=== PATIENT | female | born 1945 | race Caucasian/White ===

== ENCOUNTER 2017-11-17 05:41 | Day surgery (SDC) | payer MEDICARE, MEDICAID, OTHER ==
[2017-11-16 13:15] VITALS: BMI 30.2
[2017-11-17] MEDS ORDERED: Lidocaine Viscous Sol 2% 15 ml UD Cup ONE (07:18)
--- NOTE | 2017-11-17 08:16 | OP ---
DATE OF PROCEDURE: 11/17/2017 SURGEON: Kamilla Sanchez M.D. OPERATIVE PROCEDURE: 1. Esophagogastroduodenoscopy with biopsy. 2. Dilation with Padilla dilators sizes 48, 50, and 52 Gabonese dilator. PREOPERATIVE DIAGNOSES: Dysphagia, recent foreign body impaction. The patient has history of esopha geal stricture, status post dilatation x3 in the past. POSTOPERATIVE DIAGNOSES: 1. Normal esophageal mucosa throughout. 1. A ring like stricture of GE junction. 2. Small hiatus hernia. 3. Gastric ulcer in the gastric antrum. PROCEDURE IN DETAIL: The patient was placed on her left lateral position and was given sedation by A nesthesia Department. The patient also had a ____ gargle and swallow before the procedure. A Pentax video gastroscope under direct vision was passed in the oral pharynx, to the GE junction, stomach. The vocal cords appeared healthy. Careful exam of the esophagus shows no pathology. The mucosa ap peared normal. At the GE junction the patient was found to have an esophageal ring. She has small h iatus hernia. Retroflexion failed to show any lesions in the fundus and cardia. The gastric body, n o pathology. The gastric antrum showed ulceration. The duodenal bulb and descending duodenum, no pa thology seen. Biopsy of the gastric antrum and gastric body. The scope removed. Padilla dilator si zes 48, 50, and 52 Gabonese passed with mild resistance. The patient rescoped again. There was friabi lity and mild oozing of blood at the GE junction indicative of successful dilation. The stomach was decompressed and the scope removed. DISCHARGE PLANNING: This is a 72-year-old female who came in for EGD because of recent for eign body impaction and also past history of esophageal stricture. She underwent EGD and biopsy. Sh e had an esophageal ring at the GE junction, which was dilated. DISCHARGE RECOMMENDATIONS: 1. She is on omeprazole 20 once a day. Should be increased to 40 once a day. 2. The patient was advised to call me if she develops any chest discomfort, fever, hematemesis, pat na. 3. Come back to clinic in 2 weeks.
--- NOTE | 2017-11-17 08:40 | HP ---
SHORT STAY HISTORY AND PHYSICAL DATE OF ADMISSION: 11/17/2017 HISTORY OF PRESENT ILLNESS: This is a 72-year-old, white female with history of recent foot infectio ns . The patient receives two times in the past. The last one was done 2-1/2 years ago. The patient has been having difficulty swallowing over the last probably couple of weeks. Over the last weekend, she got a food bolus stuck to esophagus and started retching and coughing. Finally, sh cheryl was able to vomit the food material. The patient is actually feeling better, and she is very caref ul what she is eating. The patient has a history of acid reflux. Her symptoms suggestive of esophag eal stricture. The patient comes to the ED because of . ALLERGIES: PENICILLIN. MEDICAL ILLNESSES: 1. Diabetes mellitus. 2. Hypertension. 3. Hyperlipidemia. 4. Depression. 5. Coronary artery bypass graft. PHYSICAL EXAMINATION: GENERAL: The patient is comfortable. VITAL SIGNS: Pulse is 70, blood pressure 130/80. HEENT: Conjunctivae clear. CARDIOVASCULAR: First and second heart sounds normal. LUNGS: Clear to auscultation. ABDOMEN: Soft to palpate. No organomegaly. No tenderness. No masses. EXTREMITIES: Reveal no edema. ADMITTING DIAGNOSES: Dysphagia, history of esophageal stricture. PLAN: Esophagogastroduodenoscopy and dilation.
[2017-11-17] MEDS ORDERED: PROPOFOL 200 MG/20 ML VIAL ONE (10:44)
[2017-11-17] MEDS ORDERED: Lidocaine 1% PF 5 ML VIAL ONE (10:44)
== END 2017-11-17 09:10 | disposition home or self-care (01) ==
LOC: SDC 05:41
PROVIDERS: ATTEND Internal Medicine Gastroenterology
PROC: 0DB68ZX Excision of Stomach, Via Natural or Artificial Opening Endoscopic, Diagnostic (ICD-10-PCS; principal; 2017-11-17)
PROC: 0D758ZZ Dilation of Esophagus, Via Natural or Artificial Opening Endoscopic (ICD-10-PCS; 2017-11-17)
DX: K31.89 Other diseases of stomach and duodenum (principal); K22.2 Esophageal obstruction; K44.9 Diaphragmatic hernia without obstruction or gangrene; E11.9 Type 2 diabetes mellitus without complications; I10 Essential (primary) hypertension; E78.5 Hyperlipidemia, unspecified; F32.9 Major depressive disorder, single episode, unspecified; Z88.0 Allergy status to penicillin; Z95.1 Presence of aortocoronary bypass graft; Z98.890 Other specified postprocedural states
CPT/HCPCS: 88305; 88312; J2001; J2704

== ENCOUNTER 2017-12-27 14:40 | Outpatient (CLI) | payer MEDICARE, MEDICAID, OTHER | END 2017-12-27 14:41 | disposition home or self-care (01) | LOC: BICMAMMO 14:40 | PROVIDERS: ATTEND Internal Medicine | DX: Z12.31 Encounter for screening mammogram for malignant neoplasm of breast (principal) | CPT/HCPCS: 77063; 77067 ==

== ENCOUNTER 2019-03-26 13:43 | Outpatient (CLI) | payer MEDICARE, MEDICAID | END 2019-03-26 13:44 | disposition home or self-care (01) | LOC: DTY/OP 13:43 | PROVIDERS: ATTEND Internal Medicine | DX: E11.65 Type 2 diabetes mellitus with hyperglycemia (principal) | CPT/HCPCS: 97802 ==

== ENCOUNTER 2020-11-23 17:29 | Observation (INO) | payer MEDICARE, MEDICAID ==
[2020-11-23 19:39] LABS: #Eosinphils 0.1 thou/uL (0.0-0.7); #Lymphocytes 1.1 thou/uL (1.20-3.40); #Monocytes 0.5 thou/uL (0.11-0.59); #Neutrophils 2.8 thou/uL (1.40-6.50); %Lymphocytes 24.4 % (21.0-51.0); %Monocytes 10.4 % (0.0-10.0); %Neutrophils 61.2 % (42.0-75.0); Hemoglobin 12.9 g/dL (12.0-16.0); Mean Corpuscular Hemoglobin 29.1 pg (27.0-31.0); Mean Corpuscular Volume 85.5 fL (78.0-98.0); Mean Platelet Volume 10.5 fL (7.4-10.4); Platelet Count 144 thou/uL (130-400); RBC Distribution Width 13.1 % (11.5-14.5); Red Blood Cell (RBC) Count 4.44 mill/uL (4.20-5.40); White Blood Cell (WBC) Count 4.5 thou/uL (4.8-10.8)
[2020-11-23 19:49] LABS: PTT 23.2 sec (22.9-36.1); Prothrombin Time 12.9 sec (12.0-14.7)
[2020-11-23 19:59] LABS: Acetaminophen Less than 6.0 mcg/mL (10.0-30.0); Alcohol Less than 10 mg/dL (Less than 10); Salicylate Less than 8.0 mg/dL (15.0-30.0)
[2020-11-23 19:59] LABS: ALT (SGPT) 32 U/L (8-55); AST (SGOT) 22 U/L (5-34); Albumin 4.1 g/dL (3.4-4.8); Alkaline Phosphatase 94 U/L (40-110); Anion Gap 16 mmol/L (10-20); BUN (Urea Nitrogen) 14 mg/dL (9.8-20.1); Bilirubin, Total 0.5 mg/dL (0.2-1.2); CK (CPK) 66 U/L (29-168); Calc. Creatinine Clearance 0 mL/min (70-130); Calcium 9.5 mg/dL (7.8-10.44); Carbon Dioxide 21 mmol/L (23-31); Chloride 101 mmol/L (98-107); Globulin 2.6 g/dL (2.4-3.5); Glucose 464 mg/dL (83-110); Potassium 4.3 mmol/L (3.5-5.1); Protein, Total 6.7 g/dL (5.8-8.1); Sodium 134 mmol/L (136-145)
[2020-11-23] MEDS ORDERED: Aspirin Chewable 81 MG TAB ONE (22:00)
[2020-11-23] MEDS ORDERED: Dextrose 50% Abboject 50 ML SYRINGE IVP PRN (22:45)
[2020-11-23] MEDS ORDERED: Ondansetron ODT 4 MG TAB SL PRN (22:45)
[2020-11-23] MEDS ORDERED: Dextrose 5% in Water 1,000 ML IV PRN (22:45)
[2020-11-23] MEDS ORDERED: Insulin Regular 300 UNITS/3 ML VIAL SC PRN (22:45)
[2020-11-23] MEDS ORDERED: Ondansetron PF 4 MG/2 ML Vial IVP PRN (22:45)
[2020-11-23] MEDS ORDERED: Acetaminophen 325 MG TAB PO PRN (22:45)
[2020-11-23 23:09] LABS: Troponin I Less than 0.010 ng/mL (< 0.028)
[2020-11-23 23:44] VITALS: BMI 29.2
[2020-11-24] MEDS ORDERED: hydrALAZINE 20 MG/ML VIAL SLOW IVP PRN (00:50)
[2020-11-24] MEDS ORDERED: HumaLOG 300 UNITS/3 ML VIAL SC PRN (00:51)
[2020-11-24] MEDS ORDERED: Dextrose 5% in Water 1,000 ML IV PRN (00:51)
[2020-11-24] MEDS ORDERED: Dextrose 50% Abboject 50 ML SYRINGE SLOW IVP PRN (00:51)
[2020-11-24] MEDS ORDERED: Acetaminophen 325 MG TAB PO PRN (01:48)
[2020-11-24] MEDS ORDERED: Ondansetron PF 4 MG/2 ML Vial IVP PRN (01:48)
[2020-11-24 02:17] LABS: Troponin I Less than 0.010 ng/mL (< 0.028)
[2020-11-24 02:24] LABS: Cardiac Risk 3.9 (Less than 4.5)
[2020-11-24 02:26] LABS: SARS-CoV-2 NAA Rapid Test Not Detected (NotDetected)
[2020-11-24 05:41] LABS: #Eosinphils 0.1 thou/uL (0.0-0.7); #Lymphocytes 1.4 thou/uL (1.20-3.40); #Monocytes 0.4 thou/uL (0.11-0.59); #Neutrophils 2.3 thou/uL (1.40-6.50); %Basophils 0.3 % (0.0-1.0); %Eosinophils 3.6 % (0.0-10.0); %Lymphocytes 32.4 % (21.0-51.0); %Monocytes 9.9 % (0.0-10.0); %Neutrophils 53.8 % (42.0-75.0); Hemoglobin 12.3 g/dL (12.0-16.0); Mean Corpuscular HGB CONC 33.1 g/dL (32.0-36.0); Mean Corpuscular Hemoglobin 28.6 pg (27.0-31.0); Mean Corpuscular Volume 86.3 fL (78.0-98.0); Mean Platelet Volume 10.6 fL (7.4-10.4); Platelet Count 135 thou/uL (130-400); RBC Distribution Width 13.3 % (11.5-14.5); Red Blood Cell (RBC) Count 4.31 mill/uL (4.20-5.40); White Blood Cell (WBC) Count 4.2 thou/uL (4.8-10.8)
[2020-11-24] MEDS: HumaLOG 300 UNITS/3 ML VIAL SC PRN ×2 (05:43→12:00)
[2020-11-24] MEDS ORDERED: Levothyroxine Sodium 100 MCG TAB PO SCH (06:00)
[2020-11-24 06:10] LABS: Anion Gap 13 mmol/L (10-20); BUN (Urea Nitrogen) 15 mg/dL (9.8-20.1); Calc. Creatinine Clearance 69 mL/min (70-130); Calcium 9.1 mg/dL (7.8-10.44); Carbon Dioxide 24 mmol/L (23-31); Chloride 103 mmol/L (98-107); Glucose 353 mg/dL (83-110); Potassium 4.1 mmol/L (3.5-5.1); Sodium 136 mmol/L (136-145)
[2020-11-24 06:42] LABS: Hemoglobin A1c 12.3 % (4.0-6.0)
[2020-11-24] MEDS: metFORMIN 500 MG TAB PO SCH ×2 (08:57→16:14)
[2020-11-24] MEDS ORDERED: Escitalopram Oxalate 20 mg Tablet PO SCH (09:00)
[2020-11-24] MEDS ORDERED: Non-Formulary Item 1 EACH (Pregabalin [Lyrica] 150 MG Cap) PO SCH (09:00)
[2020-11-24] MEDS ORDERED: Non-Formulary Item 1 EACH (Metformin Hcl [Metformin Hcl] 1,000 MG Tablet) PO SCH (09:00)
[2020-11-24] MEDS ORDERED: Atorvastatin Calcium 40 MG TAB PO SCH (09:00)
[2020-11-24] MEDS ORDERED: Pregabalin 75 MG CAP PO SCH (09:00)
[2020-11-24] MEDS ORDERED: Glimepiride 4 MG TAB PO SCH (09:00)
[2020-11-24] MEDS ORDERED: Gabapentin 100 MG CAP PO SCH (09:00)
[2020-11-24] MEDS ORDERED: Lisinopril 20 MG TAB PO SCH (09:00)
[2020-11-24] MEDS ORDERED: Aspirin 81 mg Enteric Coated Tablet PO SCH (09:00)
[2020-11-24] MEDS ORDERED: Metoprolol Tartrate 25 MG TAB PO SCH (09:00)
[2020-11-24 13:51] LABS: Bacteria/HPF None Seen HPF (None Seen); Bilirubin Negative (Negative); Blood, Urine Negative (Negative); Clarity Clear (Clear); Glucose, Urine (Dipstick) Greater than 1000 mg/dL (Negative); Ketone, Urine Negative (Negative); Leukocyte Negative Leu/uL (Negative); Nitrite Negative (Negative); Protein, Urine (Dipstick) Negative (Neg-Trace); RBC/HPF 0-3 HPF (0-3); Specific Gravity, Urine 1.032 (1.002-1.036); Squamous Epithelial None Seen HPF (0-3); Urobilinogen Normal mg/dL (Less than 2); WBC/HPF 0-3 HPF (0-3); pH, Urine 6.5 (5.0-9.0)
[2020-11-24 13:56] LABS: Urine Culture Reflex No No
[2020-11-24 15:28] VITALS: BP 127/74; TEMP 98.3
[2020-11-24] MEDS ORDERED: QUETIAPINE FUMARATE 50 MG PO SCH (21:00)
== END 2020-11-24 19:35 | disposition home health service (06) ==
LOC: ERS 17:29 → 2SE 21:54
PROVIDERS: ADMIT Internal Medicine; ATTEND Internal Medicine
DX: M50.10 Cervical disc disorder with radiculopathy, unspecified cervical region (principal); R53.1 Weakness; R27.0 Ataxia, unspecified; M54.5 Low back pain; I25.10 Atherosclerotic heart disease of native coronary artery without angina pectoris; I10 Essential (primary) hypertension; E78.5 Hyperlipidemia, unspecified; K52.9 Noninfective gastroenteritis and colitis, unspecified; E03.9 Hypothyroidism, unspecified; E11.65 Type 2 diabetes mellitus with hyperglycemia; R32 Unspecified urinary incontinence; M48.02 Spinal stenosis, cervical region; I07.1 Rheumatic tricuspid insufficiency; Z79.84 Long term (current) use of oral hypoglycemic drugs; Z79.899 Other long term (current) drug therapy; Z88.0 Allergy status to penicillin; Z95.1 Presence of aortocoronary bypass graft; Z20.822 Contact with and (suspected) exposure to COVID-19
CPT/HCPCS: 70450; 70551; 71045; 80048; 80053; 80061; 80307; 81001; 82550; 82962; 83036; 84484 ×3; 85025 ×2; 85610; 85730; 93005; 93306; 93880; 97116; 97139; 99285; G0378 ×3; U0002; U0005; 36415; 36416; J1815

== ENCOUNTER 2021-08-31 12:55 | Outpatient (CLI) | payer MEDICARE, OTHER | END 2021-08-31 12:56 | disposition home or self-care (01) | LOC: BICRAD 12:55 | PROVIDERS: ATTEND Physician Assistant | DX: Z47.89 Encounter for other orthopedic aftercare (principal); M47.812 Spondylosis without myelopathy or radiculopathy, cervical region; Z98.1 Arthrodesis status | CPT/HCPCS: 72040 ==

== ENCOUNTER 2022-09-21 11:38 | Outpatient (CLI) | payer OTHER, MEDICAID | END 2022-09-21 11:39 | disposition home or self-care (01) | LOC: SCSCT 11:38 | PROVIDERS: ATTEND Physician Assistant | DX: Z47.1 Aftercare following joint replacement surgery (principal); R29.890 Loss of height; M50.321 Other cervical disc degeneration at C4-C5 level; M48.02 Spinal stenosis, cervical region; M47.812 Spondylosis without myelopathy or radiculopathy, cervical region; Z98.890 Other specified postprocedural states; Z98.1 Arthrodesis status | CPT/HCPCS: 72125 ==

== ENCOUNTER 2023-02-09 16:31 | Inpatient (IN) | payer OTHER, MEDICAID ==
[2023-02-09 17:32] VITALS: BMI 32.3
[2023-02-09] MEDS ORDERED: Dextrose 5% in Water 1,000 ML IV PRN (20:35)
[2023-02-09] MEDS ORDERED: Glucagon 1 MG/ML KIT IM PRN (20:35)
[2023-02-09] MEDS ORDERED: Dextrose 50% Abboject 50 ML SYRINGE SLOW IVP PRN (20:35)
[2023-02-09] MEDS ORDERED: Acetaminophen 325 MG TAB PO PRN (20:37)
[2023-02-09] MEDS ORDERED: HumaLOG 300 UNITS/3 ML VIAL SC PRN (20:40)
[2023-02-09] MEDS ORDERED: hydrALAZINE 20 MG/ML VIAL SLOW IVP PRN (20:40)
[2023-02-09] MEDS ORDERED: metFORMIN 500 MG TAB PO SCH (21:00)
[2023-02-09] MEDS ORDERED: Metoprolol Tartrate 25 MG TAB PO SCH (21:00)
[2023-02-09] MEDS: Glimepiride 4 MG TAB PO SCH (22:57)
[2023-02-09] MEDS: QUEtiapine 25 MG TAB PO SCH (22:57)
[2023-02-10] MEDS: Magnesium 2 GM/50 ML(in water) 2 GM in Premix Bag 1 BAG IVPB SCH (00:50)
[2023-02-10 04:29] LABS: #Monocytes 0.3 thou/uL (0.11-0.59); #Neutrophils 2.1 thou/uL (1.40-6.50); %Basophils 0.7 % (0.0-1.0); %Lymphocytes 42.7 % (21.0-51.0); %Neutrophils 49.4 % (42.0-75.0); Hematocrit 35.1 % (36.0-47.0); Hemoglobin 10.9 g/dL (12.0-16.0); Mean Corpuscular HGB CONC 31.1 g/dL (32.0-36.0); Mean Corpuscular Hemoglobin 26.9 pg (27.0-31.0); Mean Corpuscular Volume 86.7 fl (78.0-98.0); Mean Platelet Volume 12.8 fL (7.4-10.4); Platelet Count 149 10x3/uL (130-400); RBC Distribution Width 16.1 % (11.5-14.5); Red Blood Cell (RBC) Count 4.05 mill/uL (4.20-5.40); White Blood Cell (WBC) Count 4.2 10x3/uL (4.8-10.8)
[2023-02-10 04:56] LABS: ALT (SGPT) 25 U/L (8-55); AST (SGOT) 40 U/L (5-34); Albumin 4.1 g/dL (3.4-4.8); Alkaline Phosphatase 92 U/L (40-110); Anion Gap 13 mmol/L (10-20); BUN (Urea Nitrogen) 13 mg/dL (9.8-20.1); Bilirubin, Total 0.2 mg/dL (0.2-1.2); Calc. Creatinine Clearance 46 mL/min (70-130); Calcium 8.7 mg/dL (7.8-10.44); Carbon Dioxide 25 mmol/L (23-31); Cardiac Risk 4.7 (Less than 4.5); Chloride 105 mmol/L (98-107); Cholesterol 141 mg/dl (< 200 Desired); Estimated GFR 39; Globulin 2.2 g/dL (2.4-3.5); Glucose 180 mg/dL (83-110); HDL Cholesterol 30 mg/dL (>60 Neg Risk); LDL Cholesterol, Calculated 73 mg/dL; Potassium 4.1 mmol/L (3.5-5.1); Protein, Total 6.3 g/dL (5.8-8.1); Sodium 139 mmol/L (136-145); Triglycerides 188 mg/dL (Less than 150)
[2023-02-10] MEDS: Levothyroxine Sodium 100 MCG TAB PO SCH (05:51)
[2023-02-10] MEDS: Alogliptin 6.25 MG TAB PO SCH (08:57)
[2023-02-10] MEDS: Glimepiride 4 MG TAB PO SCH ×2 (08:57→21:11)
[2023-02-10] MEDS: Atorvastatin Calcium 40 MG TAB PO SCH (08:57)
[2023-02-10] MEDS: Escitalopram Oxalate 20 mg Tablet PO SCH (08:57)
[2023-02-10] MEDS: Pregabalin 75 MG CAP PO SCH (08:58)
[2023-02-10] MEDS: Insulin Glargine 30 UNITS/0.3 ML VIAL SC SCH ×2 (08:59→21:12)
[2023-02-10] MEDS ORDERED: Lisinopril 20 MG TAB PO SCH ×2 (09:00→11:15)
[2023-02-10] MEDS ORDERED: Aspirin 81 mg Enteric Coated Tablet PO SCH (11:00)
[2023-02-10] MEDS: HumaLOG 300 UNITS/3 ML VIAL SC PRN ×2 (11:14→18:32)
[2023-02-10 12:29] LABS: Magnesium 1.6 mg/dL (1.6-2.6)
[2023-02-10] MEDS: QUEtiapine 25 MG TAB PO SCH (21:11)
[2023-02-11] MEDS: Magnesium 2 GM/50 ML(in water) 2 GM in Premix Bag 1 BAG IVPB SCH (00:01)
[2023-02-11 04:39] LABS: #Eosinphils 0.1 thou/uL (0.0-0.7); #Monocytes 0.3 thou/uL (0.11-0.59); #Neutrophils 2.3 thou/uL (1.40-6.50); %Basophils 0.7 % (0.0-1.0); %Eosinophils 1.6 % (0.0-10.0); %Lymphocytes 39.7 % (21.0-51.0); %Monocytes 6.9 % (0.0-10.0); %Neutrophils 50.9 % (42.0-75.0); Hematocrit 40.7 % (36.0-47.0); Hemoglobin 12.5 g/dL (12.0-16.0); Mean Corpuscular HGB CONC 30.7 g/dL (32.0-36.0); Mean Corpuscular Hemoglobin 26.7 pg (27.0-31.0); Mean Corpuscular Volume 86.8 fl (78.0-98.0); Mean Platelet Volume 12.9 fL (7.4-10.4); Platelet Count 113 10x3/uL (130-400); RBC Distribution Width 16.3 % (11.5-14.5); Red Blood Cell (RBC) Count 4.69 mill/uL (4.20-5.40); White Blood Cell (WBC) Count 4.5 10x3/uL (4.8-10.8)
[2023-02-11 05:04] LABS: ALT (SGPT) 27 U/L (8-55); AST (SGOT) 39 U/L (5-34); Albumin 4.2 g/dL (3.4-4.8); Alkaline Phosphatase 97 U/L (40-110); Anion Gap 13 mmol/L (10-20); BUN (Urea Nitrogen) 14 mg/dL (9.8-20.1); Bilirubin, Total 0.5 mg/dL (0.2-1.2); Calc. Creatinine Clearance 53 mL/min (70-130); Calcium 9.2 mg/dL (7.8-10.44); Carbon Dioxide 22 mmol/L (23-31); Chloride 107 mmol/L (98-107); Estimated GFR 46; Globulin 2.6 g/dL (2.4-3.5); Glucose 219 mg/dL (83-110); Potassium 4.1 mmol/L (3.5-5.1); Protein, Total 6.8 g/dL (5.8-8.1); Sodium 138 mmol/L (136-145)
[2023-02-11] MEDS: Levothyroxine Sodium 100 MCG TAB PO SCH (06:11)
[2023-02-11 06:12] LABS: Magnesium 1.5 mg/dL (1.6-2.6)
[2023-02-11] MEDS: HumaLOG 300 UNITS/3 ML VIAL SC PRN ×2 (06:12→12:40)
[2023-02-11] MEDS: Alogliptin 6.25 MG TAB PO SCH (08:49)
[2023-02-11] MEDS: Atorvastatin Calcium 40 MG TAB PO SCH (08:50)
[2023-02-11] MEDS: Glimepiride 4 MG TAB PO SCH (08:50)
[2023-02-11] MEDS: Pregabalin 75 MG CAP PO SCH (08:51)
[2023-02-11] MEDS: Escitalopram Oxalate 20 mg Tablet PO SCH (08:51)
[2023-02-11] MEDS: Insulin Glargine 30 UNITS/0.3 ML VIAL SC SCH (08:51)
[2023-02-11] MEDS ORDERED: Aspirin 81 mg Enteric Coated Tablet PO SCH (09:00)
[2023-02-11] MEDS ORDERED: Lisinopril 20 MG TAB PO SCH ×2 (09:00→09:26)
[2023-02-11] MEDS ORDERED: Magnesium Oxide 400 MG TAB PO SCH (11:40)
[2023-02-11 11:59] VITALS: BP 139/81; TEMP 98.3
[2023-02-12] MEDS ORDERED: Lisinopril 20 MG TAB PO SCH (09:00)
[2023-02-12] MEDS ORDERED: Magnesium Oxide 400 MG TAB PO SCH ×2 (09:00)
== END 2023-02-11 14:10 | disposition home or self-care (01) | DRG 74 ==
LOC: 2SE 16:31 → INTOOBSV 16:31 → OBSVTOIN 02-10 17:47
PROVIDERS: ADMIT Family Medicine; ATTEND Family Medicine
DX: M54.12 Radiculopathy, cervical region (principal); N17.9 Acute kidney failure, unspecified; G95.20 Unspecified cord compression; E03.9 Hypothyroidism, unspecified; I10 Essential (primary) hypertension; E78.5 Hyperlipidemia, unspecified; E66.9 Obesity, unspecified; E11.42 Type 2 diabetes mellitus with diabetic polyneuropathy; F32.A Depression, unspecified; K21.9 Gastro-esophageal reflux disease without esophagitis; G89.29 Other chronic pain; R00.1 Bradycardia, unspecified; Z98.890 Other specified postprocedural states; Z88.0 Allergy status to penicillin; Z88.2 Allergy status to sulfonamides; Z79.890 Hormone replacement therapy; Z79.899 Other long term (current) drug therapy; Z79.82 Long term (current) use of aspirin; Z90.710 Acquired absence of both cervix and uterus; Z68.32 Body mass index [BMI] 32.0-32.9, adult; Z90.49 Acquired absence of other specified parts of digestive tract; Z95.1 Presence of aortocoronary bypass graft; Z90.89 Acquired absence of other organs; Z80.1 Family history of malignant neoplasm of trachea, bronchus and lung
CPT/HCPCS: 36415; 36416; 70551; 80053; 80061; 83735; 85025; 96374; G0378; J1815; J3475

== ENCOUNTER 2025-02-18 16:20 | Inpatient (IN) | payer MEDICARE, MEDICAID ==
[2025-02-18 17:58] LABS: Actual Bicarbonate (HCO3v) 22.1 mEq/L (22-28); Base Excess -3.2 mEq/L (-2.0 to +3.0); Calcium, Ionized (venous) 1.12 mmol/L (1.16-1.32); Chloride (VBG) 101 mmol/L (98-106); Hematocrit-VBG 37 % (36.0-47.0); Hemoglobin (Hb) 12.5 g/dL (11.7-16.1); Potassium (VBG) 4.62 mmol/L (3.70-5.30); Sodium 137 mmol/L (133-146)
[2025-02-18 18:06] LABS: #Basophils 0.05 10x3/uL (0.0-0.2); #Eosinophils 0.12 10x3/uL (0.0-0.7); #Monocytes 0.53 10x3/uL (0.11-0.59); #Neutrophils 4.64 10x3/uL (1.40-6.50); %Basophils 0.6 % (0.0-1.0); %Eosinophils 1.5 % (0.0-10.0); %Lymphocytes 34.4 % (21.0-51.0); %Monocytes 6.5 % (0.0-10.0); %Neutrophils 56.6 % (42.0-75.0); Hematocrit 35.9 % (36.0-47.0); Hemoglobin 11.5 g/dL (12.0-16.0); Mean Corpuscular Hemoglobin 25.2 pg (27.0-31.0); Mean Corpuscular Volume 78.7 fL (78.0-98.0); Platelet Count 205 10x3/uL (130-400); Red Blood Cell (RBC) Count 4.56 mill/uL (4.20-5.40); White Blood Cell (WBC) Count 8.19 10x3/uL (4.8-10.8)
[2025-02-18 18:30] LABS: ALT (SGPT) 22 U/L (Less than 34); AST (SGOT) 20 U/L (11-34); Albumin 4.3 g/dL (3.1-4.5); Alkaline Phosphatase 83 U/L (40-110); Anion Gap 17 mmol/L (10-20); BUN (Urea Nitrogen) 32 mg/dL (9.8-20.1); Bilirubin, Total 0.4 mg/dL (0.3-1.2); Calc. Creatinine Clearance 0 mL/min (70-130); Calcium 9.1 mg/dL (7.8-10.44); Carbon Dioxide 22 mmol/L (23-31); Chloride 102 mmol/L (98-107); Globulin 2.8 g/dL (2.4-3.5); Glucose 296 mg/dL (83-110); Lipase 62 U/L (8-78); Magnesium 1.4 mg/dL (1.6-2.6); Potassium 4.6 mmol/L (3.5-5.1); Sodium 136 mmol/L (136-145)
[2025-02-18 19:26] LABS: Bacteria/HPF None Seen HPF (None Seen); CAUTI Indications for Culture Alt mental st,lethar; Glucose, Urine (Dipstick) Normal (Negative); Leukocyte Negative Leu/uL (Negative); Protein, Urine (Dipstick) 30 mg/dL (Neg-Trace); RBC/HPF 0-3 HPF (0-3); Specific Gravity, Urine 1.020 (1.002-1.036); Urine Culture Reflex No No; WBC/HPF 0-3 HPF (0-3)
[2025-02-18] MEDS ORDERED: Acetaminophen 325 MG TAB PO PRN (23:00)
[2025-02-18] MEDS ORDERED: Ondansetron PF 4 MG/2 ML Vial IVP PRN (23:00)
[2025-02-18] MEDS ORDERED: Dextrose 50% Abboject 50 ML SYRINGE SLOW IVP PRN (23:20)
[2025-02-18] MEDS ORDERED: Glucagon 1 MG/ML KIT IM PRN (23:20)
[2025-02-19] MEDS: Magnesium 2 GM/50 ML(in water) 2 GM in Premix 1 BAG IVPB SCH ×2 (01:00→10:19)
[2025-02-19 01:53] VITALS: BMI 30.5
[2025-02-19] MEDS: Insulin Glargine 30 UNITS/0.3 ML VIAL SC SCH ×2 (02:19→10:02)
[2025-02-19] MEDS ORDERED: Pantoprazole 40 MG DR.TAB PO PRN (03:07)
[2025-02-19 05:42] LABS: #Basophils 0.03 10x3/uL (0.0-0.2); #Eosinophils 0.07 10x3/uL (0.0-0.7); #Monocytes 0.33 10x3/uL (0.11-0.59); #Neutrophils 2.99 10x3/uL (1.40-6.50); %Basophils 0.6 % (0.0-1.0); %Eosinophils 1.3 % (0.0-10.0); %Lymphocytes 33.9 % (21.0-51.0); %Monocytes 6.4 % (0.0-10.0); %Neutrophils 57.6 % (42.0-75.0); Hematocrit 36.1 % (36.0-47.0); Hemoglobin 11.0 g/dL (12.0-16.0); Mean Corpuscular Hemoglobin 24.7 pg (27.0-31.0); Mean Corpuscular Volume 80.9 fL (78.0-98.0); Platelet Count 180 10x3/uL (130-400); Red Blood Cell (RBC) Count 4.46 mill/uL (4.20-5.40); White Blood Cell (WBC) Count 5.19 10x3/uL (4.8-10.8)
[2025-02-19 06:07] LABS: ALT (SGPT) 20 U/L (Less than 34); AST (SGOT) 17 U/L (11-34); Albumin 4.1 g/dL (3.1-4.5); Alkaline Phosphatase 83 U/L (40-110); Anion Gap 13 mmol/L (10-20); BUN (Urea Nitrogen) 26 mg/dL (9.8-20.1); Bilirubin, Total 0.3 mg/dL (0.3-1.2); Calc. Creatinine Clearance 48 mL/min (70-130); Calcium 9.1 mg/dL (7.8-10.44); Carbon Dioxide 24 mmol/L (23-31); Chloride 103 mmol/L (98-107); Globulin 2.9 g/dL (2.4-3.5); Glucose 401 mg/dL (83-110); Magnesium 1.6 mg/dL (1.6-2.6); Potassium 4.2 mmol/L (3.5-5.1); Sodium 136 mmol/L (136-145)
[2025-02-19 06:38] LABS: Iron 52 ug/dL (50-170); Iron Binding Capacity, Total 428 mcg/dL (265-497)
[2025-02-19] MEDS ORDERED: Insulin Glargine 30 UNITS/0.3 ML VIAL SC SCH (09:00)
[2025-02-19] MEDS: Enoxaparin 40 MG (0.4 mL) SYRINGE SC SCH (10:01)
[2025-02-19] MEDS: Chlorthalidone 25 MG TAB PO SCH (10:01)
[2025-02-19] MEDS: Acetaminophen 325 MG TAB PO PRN (13:18)
[2025-02-20 07:13] LABS: ALT (SGPT) 20 U/L (Less than 34); AST (SGOT) 20 U/L (11-34); Albumin 4.2 g/dL (3.1-4.5); Alkaline Phosphatase 79 U/L (40-110); Anion Gap 13 mmol/L (10-20); BUN (Urea Nitrogen) 15 mg/dL (9.8-20.1); Bilirubin, Total 0.4 mg/dL (0.3-1.2); Calc. Creatinine Clearance 67 mL/min (70-130); Calcium 9.0 mg/dL (7.8-10.44); Carbon Dioxide 23 mmol/L (23-31); Chloride 104 mmol/L (98-107); Globulin 2.8 g/dL (2.4-3.5); Glucose 303 mg/dL (83-110); Potassium 4.2 mmol/L (3.5-5.1); Sodium 136 mmol/L (136-145)
[2025-02-20 08:13] LABS: #Basophils 0.03 10x3/uL (0.0-0.2); #Eosinophils 0.11 10x3/uL (0.0-0.7); #Monocytes 0.39 10x3/uL (0.11-0.59); #Neutrophils 2.39 10x3/uL (1.40-6.50); %Basophils 0.6 % (0.0-1.0); %Eosinophils 2.2 % (0.0-10.0); %Lymphocytes 41.2 % (21.0-51.0); %Monocytes 7.8 % (0.0-10.0); %Neutrophils 47.8 % (42.0-75.0); Hematocrit 36.8 % (36.0-47.0); Hemoglobin 11.6 g/dL (12.0-16.0); Mean Corpuscular Hemoglobin 24.8 pg (27.0-31.0); Mean Corpuscular Volume 78.6 fL (78.0-98.0); Platelet Count 193 10x3/uL (130-400); Red Blood Cell (RBC) Count 4.68 mill/uL (4.20-5.40); White Blood Cell (WBC) Count 5.00 10x3/uL (4.8-10.8)
[2025-02-20] MEDS: Insulin Glargine 30 UNITS/0.3 ML VIAL SC SCH ×4 (08:49→22:18)
[2025-02-20 09:20] LABS: Magnesium 1.6 mg/dL (1.6-2.6)
[2025-02-20] MEDS: Lisinopril 20 MG TAB PO SCH (10:08)
[2025-02-20 20:03] LABS: Anion Gap 14 mmol/L (10-20); BUN (Urea Nitrogen) 19 mg/dL (9.8-20.1); Calc. Creatinine Clearance 53 mL/min (70-130); Calcium 9.7 mg/dL (7.8-10.44); Carbon Dioxide 22 mmol/L (23-31); Chloride 102 mmol/L (98-107); Glucose 368 mg/dL (83-110); Potassium 4.1 mmol/L (3.5-5.1); Sodium 134 mmol/L (136-145)
[2025-02-20] MEDS: metFORMIN 500 MG TAB PO SCH (23:04)
[2025-02-21 01:13] LABS: Anion Gap 13 mmol/L (10-20); BUN (Urea Nitrogen) 18 mg/dL (9.8-20.1); Calc. Creatinine Clearance 55 mL/min (70-130); Calcium 9.2 mg/dL (7.8-10.44); Carbon Dioxide 25 mmol/L (23-31); Chloride 101 mmol/L (98-107); Glucose 245 mg/dL (83-110); Potassium 3.9 mmol/L (3.5-5.1); Sodium 135 mmol/L (136-145)
[2025-02-21 05:59] LABS: #Basophils 0.03 10x3/uL (0.0-0.2); #Eosinophils 0.10 10x3/uL (0.0-0.7); #Monocytes 0.49 10x3/uL (0.11-0.59); #Neutrophils 2.76 10x3/uL (1.40-6.50); %Basophils 0.5 % (0.0-1.0); %Eosinophils 1.8 % (0.0-10.0); %Lymphocytes 39.9 % (21.0-51.0); %Monocytes 8.7 % (0.0-10.0); %Neutrophils 48.7 % (42.0-75.0); Hematocrit 37.4 % (36.0-47.0); Hemoglobin 11.6 g/dL (12.0-16.0); Mean Corpuscular Hemoglobin 24.5 pg (27.0-31.0); Mean Corpuscular Volume 79.1 fL (78.0-98.0); Platelet Count 191 10x3/uL (130-400); Red Blood Cell (RBC) Count 4.73 mill/uL (4.20-5.40); White Blood Cell (WBC) Count 5.66 10x3/uL (4.8-10.8)
[2025-02-21 06:13] LABS: ALT (SGPT) 19 U/L (Less than 34); AST (SGOT) 19 U/L (11-34); Albumin 4.3 g/dL (3.1-4.5); Alkaline Phosphatase 79 U/L (40-110); Anion Gap 16 mmol/L (10-20); BUN (Urea Nitrogen) 16 mg/dL (9.8-20.1); Bilirubin, Total 0.3 mg/dL (0.3-1.2); Calc. Creatinine Clearance 57 mL/min (70-130); Calcium 9.3 mg/dL (7.8-10.44); Carbon Dioxide 24 mmol/L (23-31); Chloride 103 mmol/L (98-107); Globulin 2.7 g/dL (2.4-3.5); Glucose 247 mg/dL (83-110); Potassium 4.2 mmol/L (3.5-5.1); Sodium 139 mmol/L (136-145)
[2025-02-21] MEDS: metFORMIN 500 MG TAB PO SCH (09:18)
[2025-02-21] MEDS: Insulin Glargine 30 UNITS/0.3 ML VIAL SC SCH (09:19)
[2025-02-21 15:36] VITALS: BP 125/68; TEMP 97.9
== END 2025-02-21 15:56 | disposition home or self-care (01) | DRG 638 ==
LOC: ERS 16:20 → T4-A 22:40 → OBSVTOIN 02-19 14:51
PROVIDERS: ADMIT Family Medicine; ATTEND Family Medicine
DX: E11.65 Type 2 diabetes mellitus with hyperglycemia (principal); E87.20 Acidosis, unspecified; N17.9 Acute kidney failure, unspecified; I13.0 Hypertensive heart and chronic kidney disease with heart failure and stage 1 through stage 4 chronic kidney disease, or unspecified chronic kidney disease; I50.32 Chronic diastolic (congestive) heart failure; K21.9 Gastro-esophageal reflux disease without esophagitis; E78.5 Hyperlipidemia, unspecified; F41.9 Anxiety disorder, unspecified; E78.00 Pure hypercholesterolemia, unspecified; F32.A Depression, unspecified; E11.22 Type 2 diabetes mellitus with diabetic chronic kidney disease; N18.32 Chronic kidney disease, stage 3b; E03.9 Hypothyroidism, unspecified; G25.81 Restless legs syndrome; E83.42 Hypomagnesemia; R27.0 Ataxia, unspecified; D63.1 Anemia in chronic kidney disease; I25.10 Atherosclerotic heart disease of native coronary artery without angina pectoris; E86.9 Volume depletion, unspecified; T50.915A Adverse effect of multiple unspecified drugs, medicaments and biological substances, initial encounter; Z98.890 Other specified postprocedural states; Z90.49 Acquired absence of other specified parts of digestive tract; Z90.710 Acquired absence of both cervix and uterus; Z88.0 Allergy status to penicillin; Z88.2 Allergy status to sulfonamides; Z79.890 Hormone replacement therapy; Z79.4 Long term (current) use of insulin
CPT/HCPCS: 36415; 36416; 71045; 80053; 81001; 82010; 82728; 82805; 83036; 83540; 83550; 83605; 83690; 83735; 84100; 84484; 85025; 87040; 93005; 94760; 96360; 96361; J1650; J1815; J3475; J7120